=== PATIENT | male | born 1970 | race Caucasian/White ===

== ENCOUNTER 2020-01-25 10:00 | Outpatient (CLI) | payer OTHER, SELFPAY ==
--- NOTE | ~2020-01-25 | CT_ITS ---
EXAMINATION: CT chest abdomen pelvis w con EXAM DATE: 01/25/2020 10:36 INDICATION: Left-sided lung cancer. TECHNIQUE: Spiral CT of the chest, abdomen and pelvis was performed following intravenous injection o f 100 mL Omnipaque 350. Axial, coronal and sagittal images were reviewed. Coronal maximum intensity pixel images of chest reviewed. The dose-length product (DLP) for this examination was 360.52 mGy-c m. The exposure was tailored according to patient size (auto mA exposure control), and iterative rec onstruction (ASIR) was used as additional dose reduction technique. 11/03/2019 PET/CT FINDINGS: CHEST: Status post partial left pneumonectomy with small left pleural effusion. Small amount of patc hy right lower lobe airspace disease which is new compared to prior study, appearance most consistent with acute infectious process. This is new compared to prior study. There is mild emphysema and hype rinflation. There are no pleural or pericardial effusions. Tracheobronchial tree is patent. Ther e is no mediastinal, hilar or axillary lymphadenopathy. There is no pneumothorax. Heart normal in size. No evidence of coronary arterial calcification. ABDOMEN PELVIS: The liver, spleen, adrenal glands and pancreas are unremarkable. Gallbladder is unre markable. No biliary obstruction. Portal and splenic veins are patent. Kidneys enhance symmetrical ly. There is no hydronephrosis. Multiple small left calyceal stones up to about 3 mm in size. The p rostate is unremarkable. The bladder is unremarkable. There is no retroperitoneal or pelvic lymphad enopathy. There is mild scattered arteriosclerotic disease. The appendix is not positively visualized. There is no pericecal inflammatory change to suggest appe ndicitis. The stomach and small bowel are unremarkable. There is moderate amount of colonic stool. No free intraperitoneal gas. Interval right hip replacement. There is osteolytic appearance to t he right acetabulum, similar appearance on prior study. IMPRESSION: 1. Interval development of small patchy right lower lobe airspace disease most likely pneumonia. 2. Interval right hip replacement and persistent osteolytic appearance to right acetabulum. 3. Status post partial left pneumonectomy, small pleural effusion. 4. Small left nephrolithiasis. Reviewed, dictated and finalized at location B. IMPRESSION: 1. Interval development of small patchy right lower lobe airspace disease most likely pneumonia. 2. Interval right hip replacement and persistent osteolytic appearance to righ t acetabulum. 3. Status post partial left pneumonectomy, small pleural effusion. 4. Small left nephrolithiasis.
== END 2020-01-25 10:01 | disposition home or self-care (01) ==
PROVIDERS: Visit Provider Internal Medicine
DX: C34.32 Malignant neoplasm of lower lobe, left bronchus or lung (principal); R91.8 Other nonspecific abnormal finding of lung field; Z96.641 Presence of right artificial hip joint; Z90.2 Acquired absence of lung [part of]; J90 Pleural effusion, not elsewhere classified; N20.0 Calculus of kidney
CPT/HCPCS: 71260; 74177; Q9967